=== PATIENT | female | born 1965 | race African-American/Black ===

== ENCOUNTER → 2016-07-06 | Outpatient (CLI) | payer OTHER ==
--- NOTE | 2016-07-06 23:53 | MG ---
cc: MONSE NIEVES M.D. Sex: M [id number] HISTORY: Sleep deprived study. DESCRIPTION: Diffuse beta rhythms are seen. The recording overall is synchronous and symmetric, appears normal. The patient appears to begin to fall asleep post hyperventilation. Hyperventilation was performed without major change in the background. She does in fact fall asleep and is noted to begin sleep according to the trace evidence technician and reaches stage II sleep which is synchronous and symmetric with some vertex sharp waves. No epileptiform or seizure activity is noted. There are no hemisphere asymmetries, prominent beta rhythms are noted which can be medication effect. Photic stimulation was performed without significant posterior driving. IMPRESSION Generally normal awake and sleep EEG, no evidence for focal abnormality, some prominent beta rhythms can be seen which could be medication effect. Clinical correlation is needed. MD KHANH Ramirez/YONATAN /10:48 PM /11:35 PM
== END ==
LOC: EDSEX 06:40 → HEEG 06:40
DX: G40.89 Other seizures (principal)
CPT/HCPCS: 95819